=== PATIENT | female | born 1945 | race Caucasian/White ===

== ENCOUNTER 2019-06-26 11:42 | Emergency (ER) | payer MEDICARE, BC ==
[~2019-06-26] VITALS: Ht 165.1 cm; Wt 72.6 kg
[2019-06-26 12:02] VITALS: BP 170/80
--- NOTE | 2019-06-26 12:19 | PHYS DOC ---
Past Medical History Past Medical History: Diabetes-Type II, High Cholesterol, Hypothyroid, UTI, Other Additional Past Medical Histor: PRE-DM Past Surgical History: Hysterectomy, Knee Replacement, Other Additional Past Surgical Histo: BLADDER SLING, CARDIAC STENTS - POOR HISTORIAN Alcohol Use: None Drug Use: None Adult General Chief Complaint Chief Complaint: FEMALE UROGENTIAL PROBLEMS HPI HPI Patient is a pleasant 73-year-old female who presents to the emergency department for evaluation. She states that she saw her hvac controls technician a week ago, and was prescribed a vaginal cream due to a possible "prolapse". She states that she has had a ladder slipping to correct a prolapse in the past. She has also had a hysterectomy in the past. She states that when she tried to put the cream up in her vaginal area today and felt a little tighter and she felt a bulge, although she is uncertain if this was anteriorly or posteriorly, and she presented to the emergency department, because she has been trying to get a hold of her doctor since this past Monday, and has been unable to do so. She DENIES having any pain. She states last week she did have some dysuria, and was diagnosed with a UTI by her doctor, and put on an unknown antibiotic which has resolved her symptoms. She is otherwise currently asymptomatic. There are no alleviating or exacerbating factors to her symptoms. Review of Systems Review of Systems Constitutional: Denies fever or chills [] GI: Denies abdominal pain, nausea, vomiting, bloody stools or diarrhea [] : Denies dysuria or hematuria [] Musculoskeletal: Denies back pain or joint pain [] Integument: Denies rash or skin lesions [] Neurologic: Denies headache, focal weakness or sensory changes [] Endocrine: Denies polyuria or polydipsia [] Allergies Allergies Allergies Coded Allergies Type Severity Reaction Last Updated Verified No Known Drug Allergies 06/26/19 No Physical Exam Physical Exam PHYSICAL EXAM: CONSTITUTIONAL: Well developed, well nourished HEAD: normocephalic, atraumatic EENT: PERRL, EOMI. Conjunctivae normal color, sclerae non-icteric; moist mucous membranes. NECK: Supple, non-tender; no meningismus. LUNGS: Lungs CTA, breathing even and unlabored. Normal air movement. HEART: Regular rate and rhythm, no murmur CHEST: No deformity; non-tender ABDOMEN: The abdomen is soft, and non-tender, no masses or bruits. EXTREM: Normal ROM; no deformity, no calf tenderness. Normal pulses palpable in all extremities. There is no pedal edema. SKIN: No rash; no diaphoresis NEURO: Alert; normal speech and cognition; CN's grossly intact; strength grossly intact without focal deficit. BACK: No CVA TTP. GENITOURINARY: There is a small bulge palpable in the posterior vaginal wall, suggestive of a small rectocele. There is no visualized prolapse otherwise. The remainder the urogenital exam is unremarkable externally. Speculum exam was not performed. Current Patient Data Vital Signs Vital Signs Date Time Temp Pulse Resp B/P (MAP) Pulse Ox O2 Delivery O2 Flow Rate FiO2 06/26/19 12:02 99.0 67 14 170/80 (110) 97 Room Air 99.0 EKG EKG [] Radiology/Procedures Radiology/Procedures [] Course & Med Decision Making Course & Med Decision Making I did provide the patient with reassurance, they were concerned that this might need to be dealt with emergently, and felt reassured that expectant outpatient management would be appropriate. I discussed importance of close outpatient follow-up with the patient's hvac controls technician, and return precautions were discussed in detail. Dragon Disclaimer Dragon Disclaimer This electronic medical record was generated, in whole or in part, using a voice recognition dictation system. Departure Departure Impression: Primary Impression: Rectocele Disposition: 01 HOME, SELF-CARE Condition: STABLE Referrals: SAVANNAH BUTCHER (PCP) Patient Instructions: Rectocele/Enterocele, Care After Additional Instructions: Follow-up with your hvac controls technician for further evaluation. Please call today to schedule a follow-up appointment.Return to medical care for any new or worsening symptoms, development of fever, chills, pelvic or abdominal pain, or any other new, or concerning symptoms. FITO HINOJOSA MD Jun 26, 2019 12:19
== END 2019-06-26 12:34 | disposition home or self-care (01) ==
LOC: ER 11:42
DX: N81.6 Rectocele (principal); E78.00 Pure hypercholesterolemia, unspecified; E03.9 Hypothyroidism, unspecified; E11.9 Type 2 diabetes mellitus without complications; Z87.440 Personal history of urinary (tract) infections; Z90.710 Acquired absence of both cervix and uterus; Z98.890 Other specified postprocedural states; Z95.5 Presence of coronary angioplasty implant and graft
CPT/HCPCS: 99281